=== PATIENT | female | born 1965 | race Caucasian/White ===

== ENCOUNTER 2022-07-18 03:02 | Day surgery (SDC) | payer BC, SELFPAY ==
[2022-07-06 10:41] VITALS: BMI 44.1
[2022-07-18 09:00] VITALS: BP 152/75; PULSE 73; RESP 18; TEMP 35.7; O2SAT 98; BMI 47.0
[2022-07-18] MEDS: LACTATED RINGERS 1,000 ML 150 ML IV CONT (09:22)
--- NOTE | 2022-07-18 09:39 | P.PNAN_ITS ---
Anes - Initial Pre Proc Eval Procedure: Operation Date: 07/18/22 10:30 Proposed Procedures p Screening Colonoscopy - Bogdan Grimes MD Date/Time: 07/18/22 09:39 Surgeon: Bogdan Grimes MD Pre Op Diagnosis: neoplasm screening Patient Data Age: 56 Gender: F Height: 1.6 m Weight: 120.6 kg Last Vital Signs Temp 96.3 F L 07/18/22 09:00 Pulse 73 07/18/22 09:00 Resp 18 07/18/22 09:00 BP 152/75 H 07/18/22 09:00 Pulse Ox 98 07/18/22 09:00 O2 Del Method Room Air 07/18/22 09:00 Allergies Allergy/AdvReac Type Severity Reaction Status Date / Time No Known Allergies Allergy Verified 07/18/22 09:08 Home Medications Medication Instructions Recorded Confirmed Type Vitamin D3 2,000 units PO DAILY 07/06/22 07/18/22 History Patient hx anesthesia problems: none Family hx anesthesia problems: none Results Review: All pre-operative results and documents have been reviewed as part of the pre- operative evaluation. [facility] Family History Family History (System 04/16/19 @ 10:04 by Elida Bravo) Grandparent Family history of Alzheimer's disease Family history of dementia Other Family history of arthritis Family history of malignant neoplasm Social History Social History (System 04/16/19 @ 10:04 by Elida Bravo) Smoking packs per day: 1 Smoking cigarettes per day: 20.0 Years smoked: 20 Smoking pack-years: 20.00 Smoking status: Former smoker Additional smoking assessment comments: stopped 2002 Alcohol intake: current Alcohol use details: socially Substance use: never Substance use type: does not use Living arrangements: with family Spiritual care concerns: No Anes - Eval Final PreProcedure Day of Procedure 07/18/22 09:39 Patient weight: morbidly obese Heart: regular rate and rhythm Lungs: clear to auscultation Airway: Mallampati scale class II Neurological: alert and oriented Last oral intake: >/= 8 hours ASA classification: III Emergent: no Anesthetic plan: proceed Anesthesia type and monitoring: general GIVS and standard monitoring Results Review: All pre-operative results and documents have been reviewed as part of the pre- operative evaluation. Informed Consent: The patient's anesthetic plan and its attendant risks and benefits were discussed with the patient/family/POA. Questions were solicited and answers provided to the satisfaction of the patient/family/POA.
--- NOTE | 2022-07-18 09:55 | PM.HPGS ---
History of Present Illness History of Present Illness Consent: Risks, benefits, and alternatives have been discussed and questions answered. Patient agrees to proceed with procedure. Chief complaint: neoplasm screening Narrative: Cosmo Conway is a 56 year old female here for first screening colonoscopy Review of Systems Constitutional: Constitutional: Denies headache(s) and Denies weakness Eyes: Eyes: Denies blurry vision ENT: Reports Normal hearing present, Denies headache(s) and Denies neck pain Cardiovascular: Cardiovascular: Denies chest pain and Denies dyspnea Respiratory: Respiratory: Denies dyspnea Gastrointestinal: Gastrointestinal: Reports no additional gastrointestinal complaints Genitourinary: Genitourinary: Denies dysuria Musculoskeletal: Musculoskeletal: Denies neck pain Integumentary/Breasts: Skin/Breast: Denies dry skin Neurologic: Reports Normal hearing present, Denies headache(s) and Denies weakness Psychiatric: Psychiatric: Denies anxiety Endocrine: Endocrine: Denies change in body appearance Hematologic/Lymphatic: Hematologic/Lymphatic: Denies easy bleeding Allergic/Immunologic: Allergic/Immunologic: Denies urticaria [facility] Past Medical History Medical History (Updated 07/18/22 @ 09:57 by Bogdan Grimes MD) Colon cancer screening Family History Family History (System 04/16/19 @ 10:04 by Elida Bravo) Grandparent Family history of Alzheimer's disease Family history of dementia Other Family history of arthritis Family history of malignant neoplasm Social History Social History (System 04/16/19 @ 10:04 by Elida Bravo) Smoking packs per day: 1 Smoking cigarettes per day: 20.0 Years smoked: 20 Smoking pack-years: 20.00 Smoking status: Former smoker Additional smoking assessment comments: stopped 2002 Alcohol intake: current Alcohol use details: socially Substance use: never Substance use type: does not use Living arrangements: with family Spiritual care concerns: No Meds Home Medications and Allergies Home Medications Medication Instructions Recorded Confirmed Type Vitamin D3 2,000 units PO DAILY 07/06/22 07/18/22 History Allergies Allergy/AdvReac Type Severity Reaction Status Date / Time No Known Allergies Allergy Verified 07/18/22 09:08 Vital Signs Vital Signs - 24 hr 07/18/22 09:00 Temperature 96.3 F L Pulse Rate 73 Respiratory Rate 18 Blood Pressure 152/75 H Pulse Oximetry 98 Oxygen Delivery Room Air Exam Const: General: comfortable and no acute distress HENMT: Face/Nose/Sinus: Normal nares present Eyes: General: appearance normal, both eyes and all related structures Neck: Neck: no JVD Resp: Auscultation: clear to auscultation bilaterally Cardio: Rate: regular rate Rhythm: regular rhythm GI: Inspection: non-distended GI Palp: Yes Soft to palpation Skin: General skin exam: normal color Neuro: General: gait normal Speech: normal speech Extrem: General: normal to inspection Psych: Mental Status: mental status grossly normal Assessment and Plan Assessment and plan (1) Colon cancer screening: Code(s): Z12.11 - Encounter for screening for malignant neoplasm of colon Status: Acute Assessment and Plan: colonoscopy
[2022-07-18 10:14] VITALS: BP 117/73; PULSE 77; RESP 18; O2SAT 97
[2022-07-18 10:24] VITALS: BP 122/70; PULSE 78; RESP 18; O2SAT 98
[2022-07-18 10:34] VITALS: BP 125/62; PULSE 80; RESP 18; O2SAT 97
== END 2022-07-18 10:41 | disposition home or self-care (01) ==
PROVIDERS: PCP Physician Assistant; Visit Provider Internal Medicine Gastroenterology
PROC: 0DJD8ZZ Inspection of Lower Intestinal Tract, Via Natural or Artificial Opening Endoscopic (ICD-10-PCS; CPT 45378; principal; 2022-07-18 10:30)
DX: Z12.11 Encounter for screening for malignant neoplasm of colon (principal); K64.8 Other hemorrhoids; Z87.891 Personal history of nicotine dependence; E66.01 Morbid (severe) obesity due to excess calories; Z68.42 Body mass index [BMI] 45.0-49.9, adult
CPT/HCPCS: 45378; J2704; J7120